=== PATIENT | male | born 1995 | race African-American/Black ===

== ENCOUNTER 2017-04-16 20:23 | Emergency (ER) | payer SELFPAY ==
[2017-04-16 21:01] LABS: Bilirubin Negative (Negative); Blood, Urine Moderate (Negative); Glucose, Urine (Dipstick) Negative (Negative); Ketone, Urine Negative (Negative); Nitrite Negative (Negative); Protein, Urine (Dipstick) Trace mg/dL (Neg-Trace); Urobilinogen 0.2 mg/dL (0.2-1.0)
[2017-04-16 21:03] LABS: Bacteria/HPF None Seen HPF (None Seen); Hyaline Casts/LPF 0-3 HYALINE CAST LPF (0-3 Hyaline); Squamous Epithelial None Seen HPF (0-3)
[2017-04-16 21:10] LABS: Yeast-All Forms None Seen HPF (None Seen)
[2017-04-16] MEDS ORDERED: Lidocaine 1% PF 5 ML VIAL ONE (22:33)
[2017-04-16] MEDS ORDERED: cefTRIAXone\\ROCEPHIN 250 MG VIAL ONE (22:33)
--- NOTE | 2017-04-16 22:33 | ULT ---
TESTICULAR ULTRASOUND WITH COLOR AND SPECTRAL DOPPLER IMAGING: HISTORY: 21-year-old male with right testicular pain. The right testis measures 4.5 x 2.4 x 2.8 cm. Left testis measures 4.6 x 2.3 x 2.3 cm. The right epid idymis is enlarged and shows increased blood flow. There is blood flow to both right and left testis. No evidence for testicular torsion. There are bilateral hydroceles, slightly worse on the right side . No intratesticular mass. IMPRESSION: Enlarged right epididymis with increased blood flow evidence for acute epididymitis. No intratesticul ar mass or testicular torsion. Small bilateral hydroceles, worse on the right side. POS: [facility]
== END 2017-04-16 23:03 | disposition home or self-care (01) ==
LOC: ERS 20:23
DX: N45.1 Epididymitis (principal)
CPT/HCPCS: 76870; 81003; 81015; 87491; 87591; 93976; 96372; J0696; J2001